=== PATIENT | male | born 1955 | race Caucasian/White ===

== ENCOUNTER 2017-03-23 11:24 | Emergency (ER) | payer OTHER ==
[~2017-03-23] VITALS: Ht 180.3 cm; Wt 97.5 kg
[~2017-03-23 11:24] MED LIST: ADVAIR 10028 PUFF/IN IN; AZITHROMYCIN250 MG PO; BROMFED DM COU118 ML PO; CARVEDILOL3.125 M1 PO; CLARITIN 10MG T10 MG PO; FLONASE 50 MCG16 GM; LISINOPRIL2.5 MG PO; NASONEX0.05 MG/AC; SIMVASTATIN20 MG PO; SINGULAIR10 MG PO
[2017-03-23] MEDS ORDERED: ZYRTEC ALLERGY10 MG PO (11:33)
[2017-03-23] MEDS ORDERED: SINGULAIR10 MG PO (11:34)
[2017-03-23] MEDS ORDERED: PROMETHAZINE D118 ML PO (11:55)
[2017-03-23] MEDS ORDERED: ZITHROMAX Z PA250 MG PO (11:55)
[2017-03-23] MEDS ORDERED: MEDROL 4MG. DOSE4 MG PO (11:55)
--- NOTE | 2017-03-23 11:55 | Urgent Treatment Center Report ---
History of Present Issue Date/Time Seen by Provider 03/23/17 1141 Visit Reason Pt arrived:Walked Presenting Problem:PT STATES HES HAD DRAINAGE AND NIGH TIME COUGH FOR 8 DAYS. Location if Accident: Onset of symptoms date/time:/ or onset unknown for:MEDICAL HX UNKNOWN Have you (or family members/close friends) recently traveled outside the [place]? N If Yes, where/when: Have you had exposure to infectious disease within the past month? TB? Other? Specify: Patient state that he was out in the weather the other day and after that thinks he may have got sick States that he has been having sinus pain and drainage along with a cough for over a week now State that he has taken several over the counter medicaitons but they have not helped and he noticed that he was coughing up a yellowish green drainage from his nose ALLERGIES Coded Allergies: No Known Allergies (07/16/16) Home Medications Reported Medications Simvastatin 20 MG PO DAILY LISINOPRIL (Lisinopril) 2.5 MG PO BID #180 TAB Carvedilol 3.125 MG PO BID #180 Cetirizine Hcl (Zyrtec) 10 MG PO DAILY Montelukast Sodium (Singulair) 10 MG PO QHS History Medical History General CAD? No Angina: No CA: No Hypertension? Yes Hyperlipidemia? Yes CHF? No DVT? No PE? No COPD? No Asthma? Yes Anemia? No GERD? No Gastric ulcers? No GI Bleed? No Hernia? No Thyroid Problems? No Hypothyroidism? No CVA? No Seizures? No Diabetes? No Renal Insuffiency? No UTI? No Stones? No GB Disease: No Nephritic Syndrome? No Asplenia? No Hepatitis? No Sickle Cell Disease? No Arthritis? No Migraines? No Cataracts? No Glaucoma? No MRSA? No HIV? No TB? No Anxiety? No Depression? No Cancer? Yes Site: HEAD Immunization HX DT/Tetanus > 10 Years Ago Flu 2013-FSN Pneumonia Refuses Surgical Hx Previous Surgery?Y ORAL SURGERY T&A CARDIAC CATH 07/25/14 PACEMAKER 07/28 Family History Family HX Diabetes No CAD No Hypertension Yes Hyperlipidemia Yes Cancer No TB No Social History Smoking Hx Smoker: Never Smoker Tobacco: No Alcohol Alcohol: No Review of Systems All Other Systems Reviewed and Negative ENT nose discharge, nose congestion, throat pain. Respiratory cough, denies shortness of breath, denies wheezing Physical Exam Vital Signs Vital Signs Date Time Temp Pulse Resp B/P Pulse O2 O2 Flow FiO2 Ox Delivery Rate 03/23 1131 97.9 60 18 145/89 97 General Appearance normal appearance, WD/WN, no apparent distress Ear, Nose, Throat sinus pain/drainage, nasal congestion, Throat red irritated drainage noted with tenderness noted in maxillary sinsues Respiratory Status Yes: trachea midline, chest symmetrical, non tender chest. No: respiratory distress. Cardiovascular normal exam, regular rate/rhythm, no peripheral edema Neurologic alert, normal exam, oriented x 3 Medical Decision Making LABS/Meds/Orders Pt receiving controlled substance in ED? No Departure Departure Time of Disposition 1150 Disposition DC Home or Self Care(routine) Clinical Impression Primary Impression: Upper respiratory infection Qualifiers: URI type: unspecified URI Qualified Code: J06.9 - Acute upper respiratory infection, unspecified Condition STABLE Referrals Colt STATON,Rusty Henriquez (Family): 3 Days-Call Office if no improvement Patient Instructions Cough, DI for Nasal Congestion Additional Instructions * Monitor Temp. Tylenol and/or Ibuprofen as needed. ER if fever is no less than 101 despite alternating Tylenol and Ibuprofen * Encourage fluids, water, Gatorade, powerade, pedialyte if infant/toddler/or child * Warm salt water gargles for throat irritation *Warm fluids *Sore throat lozenges *Sleep elevated *humidifier or vaporizer *Flonase 2 sprays each nostril daily but may take 2-3 days to notice improvement with it Follow up IMMEDIATELY for new or worsening of symptoms OR no noticeable improvement over the next 48-72 hours. 911 immediately for any life threatening symptoms such as chest pain or difficulty breathing Discharge Counseling Counseled pt/family regarding diagnosis, medications/RX, home care, follow up needs Prescriptions Current Visit Scripts PROMETHAZINE/DEXTROMETHORPHAN (Promethazine-Dm Syrup) 5 ML PO Q4HP PRN cough #120 SYR Azithromycin (Zithromycin (Z-GREG) 250MG Tab) 250 MG PO DAILY #6 TAB TAKE TWO (2) TABLETS ON DAY 1, THEN ONE (1) TABLET DAY #2 THRU #5 Methylprednisolone (Medrol Dose Greg) 4 MG PO UD #1 GREG TAKE DIRECTED ON PACKAGING at 1156
[2017-03-23 11:57] VITALS: BP 145/89
--- OUTSIDE RECORDS SUMMARY | 2017-03-26 08:31 | External Medical Summary Rpt | CCD ---
Author Author [employer] Address Unknown Phone Unavailable Purpose Continuity of Care Document - through 2016
--- OUTSIDE RECORDS SUMMARY | 2017-03-26 08:31 | External Medical Summary Rpt | CCD ---
Author Author , KEMI MCMULLEN Address Unknown Phone Purpose Continuity of Care Document - 11-24-2016 through 2016
--- OUTSIDE RECORDS SUMMARY | 2017-03-26 08:31 | External Medical Summary Rpt | CCD ---
Demographics Preferred Language Kyrgyz Marital Status Unknown Buddhist Affiliation Unknown Race Unknown Ethnic Group Unknown Author Author , KEMI MCMULLEN Address Unknown Phone Immunization No patient found.
--- OUTSIDE RECORDS SUMMARY | 2017-03-26 08:31 | External Medical Summary Rpt ---
Author Author [employer], [employer] Organization [employer] Address Unknown Phone Unavailable Results Comprehensive metabolic 2000 panel in Serum or Plasma Observa Value Referen Units Interpr Notes Date tion ce etation Range Albumin/G 1.1 - 1.8 No Normal No Nov 24 lobulin informati informati 2016 7:56 [Mass on in on in AM ratio] in source source Serum or data data Plasma Albumin 3.4 - 5.0 gm/dL Normal No Nov 14 [Mass/vol informati 2016 7:56 ume] in on in AM Serum or source Plasma data Alkaline 46 - 116 U/L Normal No Nov 24 phosphata informati 2016 7:56 se on in AM [Enzymati source c data activity/ volume] in Serum or Plasma Bilirubin 0.2 - 1.0 mg/dL Normal No Nov 24 .total informati 2016 7:56 [Mass/vol on in AM ume] in source Serum or data Plasma Urea 7 - 18 mg/dL Normal No Nov 24 nitrogen informati 2017 7:56 [Mass/vol on in AM ume] in source Serum or data Plasma Calcium 8.5 - mg/dL Normal No Nov 14 [Mass/vol 10.1 informati 2017 7:56 ume] in on in AM Serum or source Plasma data Chloride 98 - 107 mmoL/L Normal No Nov 14 [Moles/vo informati 2017 7:56 lume] in on in AM Serum or source Plasma data Carbon 21.0 - mmoL/L Low No Nov 24 dioxide, 32.0 informati 2017 7:56 total on in AM [Moles/vo source lume] in data Serum or Plasma Creatinin 0.70 - mg/dL Normal No Nov 14 e 1.30 informati 2017 7:56 [Mass/vol on in AM ume] in source Serum or data Plasma Estimated >60 ML/MIN No REFERENCE Bob 14 informati RANGE: 2017 7:56 glomerula on in >60 AM r source ML/MIN/1. filtratio data 73 SQUARE n rate METERSIf (GF this patient is -A merican, then multiply theresult by 1.210. Globulin 1.3 - 3.2 gm/dL Normal No Nov 14 [Mass/vol informati 2016 7:56 ume] in on in AM Serum source data Glucose 74 - 106 mg/dL Normal No Nov 14 [Mass/vol informati 2016 7:56 ume] in on in AM Serum or source Plasma data Potassium 3.5 - 5.1 mmoL/L Normal No Nov 24 informati 2016 7:56 [Moles/vo on in AM lume] in source Serum or data Plasma Sodium 136 - 145 mmoL/L Normal No Nov 14 [Moles/vo informati 2016 7:56 lume] in on in AM Serum or source Plasma data Aspartate 15 - 37 U/L High No Nov 24 informati 2016 7:56 aminotran on in AM sferase source [Enzymati data c activity/ volume] in Serum or Plasma Alanine 12 - 78 U/L High No Nov 14 aminotran informati 2016 7:56 sferase on in AM [Enzymati source c data activity/ volume] in Serum or Plasma Protein 6.4 - 8.2 gm/dL Normal No Nov 14 [Mass/vol informati 2016 7:56 ume] in on in AM Serum or source Plasma data Lipid 1996 panel in Serum or Plasma Observa Value Referen Units Interpr Notes Date tion ce etation Range Cholester < 200 mg/dL No No Nov 14 ol informati informati 2016 7:56 [Moles/vo on in on in AM lume] in source source Unspecifi data data ed specimen Cholester 40 - 60 MG/DL Normal No Nov 14 ol in HDL informati 2016 7:56 on in AM [Mass/vol source ume] in data Serum or Plasma Cholester 0 - 130 mg/dL Normal No Nov 14 ol in LDL informati 2017 7:56 on in AM [Mass/vol source ume] in data Serum or Plasma by clyde on Triglycer 30 - 200 mg/dL High No Nov 14 joshua informati 2017 7:56 [Moles/vo on in AM lume] in source Serum or data Plasma Cholester 0 - 40 No High No Nov 14 ol in informati informati 2017 7:56 VLDL on in on in AM [Mass/vol source source ume] in data data Serum or Plasma Prostate specific Ag [Mass/volume] in Cerebral spinal fluid Observa Value Referen Units Interpr Notes Date tion ce etation Range Prostate 0.0 - 4.0 ng/mL Normal No Nov 24 specific informati 2016 7:56 Ag on in AM [Mass/vol source ume] in data Cerebral spinal fluid Thyrotropin [Units/volume] in Serum or Plasma Observa Value Referen Units Interpr Notes Date tion ce etation Range Thyrotrop 0.358 - uIU/ml No No Nov 24 in 3.740 informati informati 2016 7:56 [Units/vo on in on in AM lume] in source source Serum or data data Plasma CBC W Auto Differential panel in Blood Observa Value Referen Units Interpr Notes Date tion ce etation Range Basophils 0 - 0.2 K/MM3 Normal No Nov 24 informati 2016 7:56 [#/volume on in AM ] in source Blood by data Automated count Basophils 0.1 - 2.0 % Normal No Nov 14 /100 informati 2016 7:56 leukocyte on in AM s in source Blood by data Automated count Eosinophi 0.0 - 0.4 K/mm3 Normal No Nov 24 ls informati 2016 7:56 [#/volume on in AM ] in source Blood by data Automated count Eosinophi 0.1 - % Normal No Nov 24 ls/100 12.0 informati 2016 7:56 leukocyte on in AM s in source Blood by data Automated count Granulocy 1.3 - 8.0 K/mm3 Normal No Nov 24 meeta informati 2016 7:56 [#/volume on in AM ] in source Blood by data Automated count Granulocy 37.0 - % Normal No Nov 24 meeta/100 80.0 informati 2016 7:56 leukocyte on in AM s in source Blood by data Automated count Hematocri 42.0 - % Normal No Nov 24 t [Volume 52.0 informati 2016 7:56 on in AM Fraction] source of Blood data Hemoglobi 14.1 - g/dL Normal No Nov 24 n 18.0 informati 2016 7:56 [Mass/vol on in AM ume] in source Blood data Lymphocyt 0.7 - 4.5 K/mm3 Normal No Nov 24 es informati 2016 7:56 [#/volume on in AM ] in source Unspecifi data ed specimen by Automated count Lymphocyt 10 - 50 % Normal No Nov 24 es informati 2016 7:56 [#/volume on in AM ] in source Unspecifi data ed specimen by Automated count Erythrocy 27 - 31.2 pg Normal No Nov 14 te mean informati 2016 7:56 corpuscul on in AM ar source hemoglobi data n [Entitic mass] Erythrocy 31.8 - g/dl Normal No Nov 14 te mean 35.4 informati 2016 7:56 corpuscul on in AM ar source hemoglobi data n concentra tion [Mass/vol ume] by Automated count Erythrocy 82.2 - fl Normal No Nov 14 te mean 97.8 informati 2016 7:56 corpuscul on in AM ar volume source [Entitic data volume] by Automated count Monocytes 0.1 - 1.0 K/mm3 Normal No Nov 14 informati 2016 7:56 [#/volume on in AM ] in source Blood by data Automated count Monocytes 1.7 - 9.3 % Normal No Nov 14 /100 informati 2017 7:56 leukocyte on in AM s in source Blood by data Automated count Platelet 7.4 - fl Normal No Nov 24 mean 10.4 informati 2017 7:56 volume on in AM [Entitic source volume] data in Blood by Automated count Platelets 142 - 424 K/mm3 Normal No Nov 14 informati 2017 7:56 [#/volume on in AM ] in source Blood data Erythrocy 4.6 - 6.2 M/mm3 Normal No Nov 14 meeta informati 2017 7:56 [#/volume on in AM ] in source Amniotic data fluid Erythrocy 11.5 - % Normal No Nov 14 te 17.5 informati 2016 7:56 distribut on in AM ion width source [Entitic data volume] by Automated count Leukocyte 4.8 - K/MM3 Normal No Nov 14 s 10.8 informati 2016 7:56 [#/volume on in AM ] in source Blood data
--- OUTSIDE RECORDS SUMMARY | 2017-03-26 08:31 | External Medical Summary Rpt | CCD ---
Demographics Preferred Language Yoruba Marital Status Unknown Mandaeism Affiliation Unknown Race Unknown Ethnic Group Unknown Author Author , KEMI MCMULLEN Address Unknown Phone Immunization No patient found.
== END 2017-03-23 11:58 | disposition home or self-care (01) ==
LOC: UTC 11:24
DX: J06.9 Acute upper respiratory infection, unspecified (principal); Z95.0 Presence of cardiac pacemaker; I10 Essential (primary) hypertension; E78.5 Hyperlipidemia, unspecified; J45.909 Unspecified asthma, uncomplicated